=== PATIENT | male | born 1940 | race Caucasian/White ===

== ENCOUNTER → 2016-10-02 | Outpatient (CLI) | payer MEDICARE, BC | LOC: LAB 09:32 | DX: N40.0 Benign prostatic hyperplasia without lower urinary tract symptoms (principal) | CPT/HCPCS: 36415; 84153 ==

== ENCOUNTER → 2020-10-14 | Outpatient (CLI) | payer MEDICARE, BC ==
[~2020-10-14] MED LIST: ALBUTEROL0.63 MG/3 INH; AMLODIPINE BESY10 MG PO; AMOX TR-K CLV1 EAC4 PO; AVODART0.5 MG PO; BAYER CHEWABLE81 MG PO; BUMETANIDE1 MG PO; CENTRUM SILVER1 EAC2 PO; COLACE 100MG C100 MG PO; COLACE100 MG PO; CRESTOR10 MG PO; DRAMAMINE LESS25 MG PO; ECOTRIN81 MG PO; ELIQUIS 2.5 MG2.5 MG PO; FERROUS SULFAT325 M2 PO; FUROSEMIDE40 MG PO; IMDUR ER TAB 3030 MG PO; IMDUR ER TAB 6060 MG PO; IRON325 M1 PO; K-DUR TAB 20 M20 MEQ PO; KRILL OIL 5001 EACH PO; LOPRESSOR 25 MG25 MG PO; LOPRESSOR 50 MG50 MG PO; MEDROL4 MG PO; METOPROLOL TART25 MG PO; MIRALAX17 GM PO; NITROSTAT0.4 MG SL; NORVASC10 MG PO; PHILLIPS' COLO1 EACH PO; PLAVIX 75 MG TA75 MG PO; PRILOSEC OTC20 MG PO; PRINIVIL20 MG PO; PROSCAR5 MG PO; PROTONIX40 MG PO; RANEXA500 MG PO; ZANTAC150 MG PO; ZAROXOLYN/DIULO5 MG PO; ZETIA 10 MG TAB10 MG PO; ZITHROMAX500 MG PO; ZOFRAN ODT 4 MG4 MG SL; ZYRTEC10 MG PO
== END ==
LOC: LAB 10:38
PROVIDERS: Nurse Practitioner Family
DX: R94.39 Abnormal result of other cardiovascular function study (principal)
CPT/HCPCS: 36415; 80053

== ENCOUNTER 2020-12-27 14:55 | Emergency (ER) | payer MEDICARE, BC ==
[2020-12-27 16:13] LABS: HEMOGLOBIN 11.8 gm/dl (14.0-17.5); RED BLOOD COUNT 3.64 M/UL (4.20-5.50); WHITE BLOOD COUNT 5.5 K/UL (4.5-11.0)
== END 2020-12-27 21:25 | disposition home or self-care (01) ==
LOC: ER1 14:55
PROVIDERS: Physician Assistant
DX: I50.9 Heart failure, unspecified (principal); N18.30 Chronic kidney disease, stage 3 unspecified; E87.6 Hypokalemia; J44.9 Chronic obstructive pulmonary disease, unspecified; Z79.899 Other long term (current) drug therapy; Z20.822 Contact with and (suspected) exposure to COVID-19
CPT/HCPCS: 71045; 80053; 81001; 82550; 82553; 83874; 83880; 84484; 85025; 93005; 99285; U0002

== ENCOUNTER → 2021-01-13 | Outpatient (CLI) | payer MEDICARE, BC | LOC: RAD 16:00 | DX: R06.02 Shortness of breath (principal); R91.8 Other nonspecific abnormal finding of lung field | CPT/HCPCS: 71046 ==

== ENCOUNTER 2021-01-14 17:35 | Inpatient (IN) | payer MEDICARE, BC ==
[~2021-01-14] VITALS: Ht 182.9 cm; Wt 90.7 kg
[2021-01-14 19:46] LABS: HEMOGLOBIN 12.8 gm/dl (14.0-17.5); RED BLOOD COUNT 4.14 M/UL (4.20-5.50); WHITE BLOOD COUNT 7.4 K/UL (4.5-11.0)
--- NOTE | 2021-01-16 13:47 | NUR ---
REPORT CALLED TO [facility].
[2021-01-17 04:48] LABS: HEMOGLOBIN 12.2 gm/dl (14.0-17.5); RED BLOOD COUNT 4.04 M/UL (4.20-5.50)
[2021-01-17 05:12] LABS: WHITE BLOOD COUNT 5.2 K/UL (4.5-11.0)
== END 2021-01-19 13:07 | disposition home or self-care (01) | DRG 291 ==
LOC: ER1 17:35 → CDU 23:08 → MED SURG 4 01-15 16:14
PROVIDERS: Emergency Medicine; Internal Medicine; Internal Medicine Cardiovascular Disease; Internal Medicine Nephrology; ADMIT Internal Medicine
DX: I13.0 Hypertensive heart and chronic kidney disease with heart failure and stage 1 through stage 4 chronic kidney disease, or unspecified chronic kidney disease (principal); I50.33 Acute on chronic diastolic (congestive) heart failure; N17.9 Acute kidney failure, unspecified; Z66 Do not resuscitate; Z20.822 Contact with and (suspected) exposure to COVID-19; N18.4 Chronic kidney disease, stage 4 (severe); E87.3 Alkalosis; I25.10 Atherosclerotic heart disease of native coronary artery without angina pectoris; I48.0 Paroxysmal atrial fibrillation; I49.5 Sick sinus syndrome; E87.6 Hypokalemia; E78.5 Hyperlipidemia, unspecified; I27.20 Pulmonary hypertension, unspecified; N40.0 Benign prostatic hyperplasia without lower urinary tract symptoms; I08.1 Rheumatic disorders of both mitral and tricuspid valves; D63.1 Anemia in chronic kidney disease; Z82.49 Family history of ischemic heart disease and other diseases of the circulatory system; Z88.8 Allergy status to other drugs, medicaments and biological substances; Z95.1 Presence of aortocoronary bypass graft; Z90.49 Acquired absence of other specified parts of digestive tract; Z85.038 Personal history of other malignant neoplasm of large intestine; Z99.81 Dependence on supplemental oxygen; Z95.0 Presence of cardiac pacemaker
CPT/HCPCS: 36415; 71046; 71250; 76705; 80053; 82550; 82553; 82803; 83735; 83874; 83880; 84484; 85025; 93005; 96372; 96374; 96375; 96376; 99285; G0378; J1120; J1644; J1940; U0002

== ENCOUNTER 2021-02-12 07:37 | Outpatient (CLI) | payer MEDICARE, BC ==
[2021-02-14 11:37] LABS: HEMOGLOBIN 9.7 gm/dl (14.0-17.5); RED BLOOD COUNT 3.25 M/UL (4.20-5.50); WHITE BLOOD COUNT 5.7 K/UL (4.5-11.0)
== END 2021-02-13 16:00 | disposition home or self-care (01) ==
LOC: LAB 07:37
PROVIDERS: Internal Medicine Nephrology
DX: N18.30 Chronic kidney disease, stage 3 unspecified (principal)
CPT/HCPCS: 36415; 80048; 81001; 82570; 84156; 85025

== ENCOUNTER → 2021-05-07 | Outpatient (CLI) | payer MEDICARE, BC | LOC: LAB 08:40 → EXRD 13:30 | PROVIDERS: Internal Medicine Nephrology | DX: N18.32 Chronic kidney disease, stage 3b (principal); N28.1 Cyst of kidney, acquired | CPT/HCPCS: 36415; 76775; 80053; 82570; 83970; 84100; 84156 ==

== ENCOUNTER → 2021-06-04 | Outpatient (CLI) | payer MEDICARE, BC | LOC: LAB 09:49 | PROVIDERS: Internal Medicine Nephrology | DX: I50.22 Chronic systolic (congestive) heart failure (principal) | CPT/HCPCS: 36415; 80048 ==

== ENCOUNTER → 2021-07-09 | Outpatient (CLI) | payer MEDICARE, BC | LOC: LAB 10:10 | PROVIDERS: Internal Medicine Nephrology | DX: N18.32 Chronic kidney disease, stage 3b (principal) | CPT/HCPCS: 36415; 80053; 82570; 84156 ==

== ENCOUNTER → 2021-10-08 | Outpatient (CLI) | payer MEDICARE, BC | LOC: LAB 11:31 | PROVIDERS: Internal Medicine Nephrology | DX: N18.32 Chronic kidney disease, stage 3b (principal) | CPT/HCPCS: 36415; 80053; 82570; 83970; 84100; 84156 ==

== ENCOUNTER → 2022-04-08 | Outpatient (CLI) | payer MEDICARE, BC | LOC: LAB 09:40 | PROVIDERS: Internal Medicine Nephrology | DX: N18.32 Chronic kidney disease, stage 3b (principal); N25.81 Secondary hyperparathyroidism of renal origin | CPT/HCPCS: 36415; 80053; 82570; 83970; 84156 ==